=== PATIENT | female | born 1960 | race Caucasian/White ===

== ENCOUNTER 2016-09-06 18:00 | Emergency (ER) | payer OTHER ==
[~2016-09-06] VITALS: Ht 162.6 cm; Wt 51.5 kg
[~2016-09-06 18:00] MED LIST: CLON.5 PO
[2016-09-06 18:04] VITALS: BP 142/94; PULSE 70; RESP 16; TEMP 98.1; O2SAT 100
[2016-09-06] MEDS ORDERED: CLON.5 PO (18:16)
[2016-09-06] MEDS ORDERED: BACL10TA PO (18:16)
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
[2016-09-06 19:24] VITALS: BP 105/52; PULSE 84; RESP 18; O2SAT 98
[2016-09-06 20:14] LABS: AUTOMATED NEUTROPHIL # 5.8 TH/MM3 (1.8-7.7); BASOPHIL # 0.1 TH/MM3 (0-0.2); EOSINOPHIL # 0.2 TH/MM3 (0-0.4); EOSINOPHIL % 2.2 % (0.0-4.0); HEMATOCRIT 39.2 % (35.0-46.0); HEMO FLAGS DIFF FINAL; LYMPH % 26.9 % (9.0-44.0); LYMPHOCYTE # 2.4 TH/MM3 (1.0-4.8); MEAN CELL VOLUME 93.1 FL (80.0-100.0); MEAN CORPUSCULAR HEMOGLOBIN 31.2 PG (27.0-34.0); MEAN CORPUSCULAR HGB CONC 33.5 % (32.0-36.0); MONO % 5.4 % (0.0-8.0); NEUT % 64.5 % (16.0-70.0); PLATELET COUNT 273 TH/MM3 (150-450); RED BLOOD COUNT 4.22 MIL/MM3 (4.00-5.30); RED CELL DISTRIBUTION WIDTH 12.2 % (11.6-17.2)
[2016-09-06 20:27] VITALS: BP 123/59; PULSE 70; RESP 18; O2SAT 98
[2016-09-06 20:43] LABS: POTASSIUM 3.9 MEQ/L (3.5-5.1)
[2016-09-06 20:46] LABS: BICARBONATE 30.8 MEQ/L (21.0-32.0); MAGNESIUM 2.4 MG/DL (1.5-2.5)
[2016-09-06 21:44] VITALS: BP 134/56
--- NOTE | 2016-09-06 22:24 | EKG ---
Date Performed: 09/06/2016 Time Performed: 18:43:56 PTAGE: 56 years EKG: Sinus rhythm rSr'(V1) - probable normal variant Poor R wave progression - probable normal variant Borderline ECG PREVIOUS TRACING : 01/25/2016 09.46 Compared to prior tracing no significant change DOCTOR: Jenni Will Interpretating Date/Time 09/06/2016 22:20:29
== END 2016-09-06 22:03 | disposition home or self-care (01) ==
LOC: PHED 18:00
DX: R42 Dizziness and giddiness (principal)
CPT/HCPCS: 80048; 82375; 83735; 85025; 93005